=== PATIENT | female | born 1990 | race Caucasian/White ===

== ENCOUNTER 2021-09-08 20:42 | Emergency (ER) | payer BC ==
[2021-09-08] MEDS ORDERED: traMADol HCl 50 MG TAB ONE (22:00)
[2021-09-08] MEDS ORDERED: Ondansetron ODT 4 MG TAB ONE (22:00)
[2021-09-08] MEDS ORDERED: Boostrix 0.5 ML (Tdap) VIAL ONE ×2 (22:00→22:09)
== END 2021-09-08 22:16 | disposition home or self-care (01) ==
LOC: ERS 20:42
DX: T23.262A Burn of second degree of back of left hand, initial encounter (principal); T31.0 Burns involving less than 10% of body surface; Z23 Encounter for immunization; X11.8XXA Contact with other hot tap-water, initial encounter
CPT/HCPCS: 90471; 90715; Q0162